=== PATIENT | female | born 1960 | race Hispanic/Latino ===

== ENCOUNTER 2018-01-17 20:56 | Observation (INO) | payer OTHER ==
[2018-01-17 22:30] LABS: Absolute Lymphocytes (CBC) 0.8 K/uL (0.7-4.9); Absolute Monocytes 0.1 K/uL (0.1-1.3); Absolute Neutrophil 13.6 K/uL (1.8-8.0); Basophils % 0.1 % (0-1.3); Hematocrit 36.8 % (36.0-45.0); Lymphocytes % 5.4 % (15.3-44.8); MPV 7.7 fL (7.6-11.3); Monocytes % 0.9 % (3.3-12.3); RBC Red Blood Cell Count 4.04 M/uL (3.86-4.86)
[2018-01-17 22:43] LABS: Potassium 3.8 mEq/L (3.6-5.0)
[2018-01-17] MEDS ORDERED: NA CHLORIDE 0.9% 1,000 ML ONE (22:43)
[2018-01-17 22:49] LABS: Albumin 3.7 g/dL (3.2-5.5); Bilirubin Direct 0.1 mg/dL (0-0.2); Bilirubin Total 0.3 mg/dL (0.3-1.2); Protein, Total 6.8 g/dL (6.0-8.3)
[2018-01-17 23:05] LABS: Blood Morphology Comment NOT SEEN (NOT SEEN); Platelet Estimate ADEQ; Urine White Blood Cell Casts OK
[2018-01-17 23:13] LABS: Urine Blood 1+ (NEG); Urine Glucose TRACE (NEG); Urine Protein NEGATIVE (NEG)
[2018-01-17] MEDS ORDERED: ASPIRIN 325 MG TAB ONE (23:15)
[2018-01-17 23:16] LABS: Protime INR 0.94
[2018-01-17 23:28] LABS: Urine Bacteria <20 /HPF (<20); Urine Culture Reflex Order NOT NEEDED
--- NOTE | 2018-01-18 01:06 | EDPHYS ---
Physician Documentation [facility] Name: Azra Bacon Age: 57 yrs Sex: Female : 1960 Arrival Date: 01/17/2018 Time: 21:02 Bed 28 Private MD: ED Physician Tavo James HPI: 01/18 00:55 This 57 yrs old Female presents to ER via Ambulatory with complaints of Facial wa Swelling, Anxiety. 00:55 The patient or guardian reports chest pain that is located primarily in the substernal wa area. Onset: today, on-going x 3 months. worse today. The pain does not radiate. Associated signs and symptoms: Pertinent positives: shortness of breath, Pertinent negatives: abdominal pain, cough, dizziness, headache, syncope, vomiting. The chest pain is described as a heaviness. Duration: The patient or guardian reports a single episode, that is still ongoing. Modifying factors: The symptoms are alleviated by nothing. the symptoms are aggravated by exertion. Severity of pain: At its worst the pain was moderate in the emergency department the pain is unchanged. The patient has experienced similar episodes in the past, several times, the past 3 months. The patient has not recently seen a physician. Historical: - Allergies: 01/17 21:11 No Known Allergies; lp1 - Home Meds: 21:11 Metformin Oral [Active]; Lisinopril Oral [Active]; lp1 - PMHx: 21:11 Diabetes - NIDDM; Hypertension; lp1 - PSHx: 21:11 ; Leg surgery; lp1 - Immunization history:: Adult Immunizations up to date. - Social history:: Smoking status: Patient/guardian denies using tobacco. - Family history:: not pertinent. - Hospitalizations: : No recent hospitalization is reported. ROS: 01/18 00:57 Constitutional: Negative for fever, chills, and weight loss, Eyes: Negative for injury, wa pain, redness, and discharge, ENT: Negative for injury, pain, and discharge, Neck: Negative for injury, pain, and swelling, Abdomen/GI: Negative for abdominal pain, nausea, vomiting, diarrhea, and constipation, Back: Negative for injury and pain, : Negative for injury, bleeding, discharge, and swelling, MS/Extremity: Negative for injury and deformity, Skin: Negative for injury, rash, and discoloration, Neuro: Negative for headache, weakness, numbness, tingling, and seizure, Psych: Negative for depression, anxiety, suicide ideation, homicidal ideation, and hallucinations. Cardiovascular: Positive for chest pain, Negative for edema, orthopnea, palpitations, paroxysmal nocturnal dyspnea. Respiratory: Positive for shortness of breath, on exertion. Negative for cough, wheezing. Exam: 00:58 Constitutional: This is a well developed, well nourished patient who is awake, alert, wa and in no acute distress. Head/Face: Normocephalic, atraumatic. Eyes: Pupils equal round and reactive to light, extra-ocular motions intact. Lids and lashes normal. Conjunctiva and sclera are non-icteric and not injected. Cornea within normal limits. Periorbital areas with no swelling, redness, or edema. ENT: Nares patent. No nasal discharge, no septal abnormalities noted. Tympanic membranes are normal and external auditory canals are clear. Oropharynx with no redness, swelling, or masses, exudates, or evidence of obstruction, uvula midline. Mucous membranes moist. Neck: Trachea midline, no thyromegaly or masses palpated, and no cervical lymphadenopathy. Supple, full range of motion without nuchal rigidity, or vertebral point tenderness. No Meningismus. Chest/axilla: Normal chest wall appearance and motion. Nontender with no deformity. No lesions are appreciated. Abdomen/GI: Soft, non-tender, with normal bowel sounds. No distension or tympany. No guarding or rebound. No evidence of tenderness throughout. Back: No spinal tenderness. No costovertebral tenderness. Full range of motion. Skin: Warm, dry with normal turgor. Normal color with no rashes, no lesions, and no evidence of cellulitis. MS/ Extremity: Pulses equal, no cyanosis. Neurovascular intact. Full, normal range of motion. Neuro: Awake and alert, GCS 15, oriented to person, place, time, and situation. Cranial nerves II-XII grossly intact. Motor strength 5/5 in all extremities. Sensory grossly intact. Cerebellar exam normal. Normal gait. Psych: Awake, alert, with orientation to person, place and time. Behavior, mood, and affect are within normal limits. 00:58 Cardiovascular: Rate: tachycardic, Rhythm: regular, Pulses: no pulse deficits are appreciated. 00:58 Respiratory: the patient does not display signs of respiratory distress, Respirations: normal, Breath sounds: are clear throughout, Respiratory rate: nml Vital Signs: 01/17 21:12 BP 123 / 94; Pulse 122; Resp 18; Temp 97.5(TE); Pulse Ox 99% on R/A; Weight 77.11 kg; lp1 Height 5 ft. 1 in. (154.94 cm); 23:00 BP 154 / 99; Pulse 116; Resp 19; Pulse Ox 99% on R/A; kr2 01/18 00:01 BP 154 / 99; Pulse 114; Resp 20; Pulse Ox 98% on R/A; kr2 01:01 BP 124 / 89; Pulse 115; Resp 16; Pulse Ox 96% on R/A; kr2 01/17 21:12 Body Mass Index 32.12 (77.11 kg, 154.94 cm) lp1 MDM: 01/17 21:32 Patient medically screened. oh 01/18 00:58 Differential diagnosis: acute myocardial infarction, anxiety, coronary artery disease oh chest wall pain, congestive heart failure pericarditis, pleurisy, pneumonia, pulmonary embolus, stable angina, unstable angina. 00:59 Data reviewed: vital signs, nurses notes. Test interpretation: by ED physician or oh midlevel provider: EKG: HR 116. sinus tach. diffuse ST-T changes. 01:03 Response to treatment: the patient's symptoms have mildly improved after treatment. oh Physician consultation: Connor Chew MD. Admission orders: after a detailed discussion of the patient's condition and case, the admit orders are written by nd. Special discussion: will admit for r/o ACS. consider PE. CT chest pending. 01:07 Test interpretation: by ED physician or midlevel provider: CT chest: no PE.. oh 01:10 Data interpreted: labs noted for leukocytosis. hyperglycemia. . 01/17 21:57 Order name: BMP 01/17 21:57 Order name: BNP 01/17 21:57 Order name: CBC with Diff 01/17 21:57 Order name: CPK 01/17 21:57 Order name: D-Dimer 01/17 21:57 Order name: Hepatic Function 01/17 21:57 Order name: Lipase 01/17 21:57 Order name: Magnesium 01/17 21:57 Order name: PT-INR oh 01/17 21:57 Order name: Troponin (emerg Dept Use Only) oh 01/17 22:31 Order name: CBC with Automated Diff; Complete Time: 23:51 EDMS 01/17 22:43 Order name: Basic Metabolic Panel; Complete Time: 23:51 EDMS 01/17 22:43 Order name: Lipase; Complete Time: 23:51 EDMS 01/17 22:49 Order name: Troponin (Emerg Dept Use Only); Complete Time: 23:51 EDMS 01/17 21:57 Order name: XRAY Chest Pa And Lat (2 Views) oh 01/17 22:50 Order name: Liver (Hepatic) Function; Complete Time: 23:51 EDMS 01/17 22:50 Order name: Creatine Phosphokinase; Complete Time: 23:52 EDMS 01/17 22:50 Order name: Magnesium; Complete Time: 23:52 EDMS 01/17 22:52 Order name: BNP B-Type Natriuretic Peptide; Complete Time: 23:52 EDMS 01/17 23:00 Order name: Urine Microscopic Only [facility] 01/17 23:05 Order name: CBC Smear Scan; Complete Time: 23:52 EDMS 01/17 23:06 Order name: Urine Dipstick--Ancillary (enter results) [facility] 01/17 23:08 Order name: Urine --Ancillary (enter results) [facility] 01/17 23:13 Order name: Urine Dipstick-Ancillary; Complete Time: 23:51 EDMS 01/17 23:13 Order name: Urine --Ancillary; Complete Time: 23:52 EDMS 01/17 23:17 Order name: Protime (+INR); Complete Time: 00:26 EDMS 01/17 23:28 Order name: Urine Microscopic Only; Complete Time: 23:51 EDMS 01/17 23:52 Order name: CT Chest For PE Angio oh 01/17 21:57 Order name: EKG; Complete Time: 22:11 oh 01/17 21:57 Order name: Cardiac monitoring; Complete Time: 22:25 oh 01/17 21:57 Order name: EKG - Nurse/Tech; Complete Time: 22:25 oh 01/17 21:57 Order name: IV Saline Lock; Complete Time: 22:25 oh 03/24 21:57 Order name: Labs collected and sent; Complete Time: 22:25 oh 01/17 21:57 Order name: O2 Per Protocol; Complete Time: 22: oh 01/17 21:57 Order name: O2 Sat Monitoring; Complete Time: : oh 01/17 21:57 Order name: Urine Dipstick-Ancillary (obtain specimen); Complete Time: 23:05 oh Administered Medications: 01/17 22:32 Drug: NS 0.9% 1000 ml Route: IV; Rate: 1 bolus; Site: right forearm; kr2 23:45 Follow up: Response: No adverse reaction; IV Status: Completed infusion kr2 22:40 Drug: Aspirin 325 mg Route: PO; kr2 01/18 00:41 Follow up: Response: No adverse reaction kr2 Disposition: 01/18/18 01:05 Hospitalization ordered by Connor Chew for Observation. Preliminary diagnosis are chest pain, shortness of breath. - Bed requested for Telemetry/MedSurg (observation). - Status is Observation. fc - Condition is Stable. - Problem is new. - Symptoms have improved. UTI on Admission? No Signatures: Dispatcher [employer] EDSimi Wilkinson RN RN Sandra Hunt RN RN fc Pena, Laura RN RN lp1 Tavo James MD MD oh Kamila Ferrera, RN RN kr2
--- NOTE | 2018-01-18 01:06 | ER ---
Nurse's Notes [facility] Name: Azra Bacon Age: 57 yrs Sex: Female : 1960 Arrival Date: 01/17/2018 Time: 21:02 Bed 28 Private MD: Diagnosis: chest pain;shortness of breath Presentation: 01/17 21:09 Presenting complaint: Patient states: facial swelling x 1 month, today she woke up and lp1 eyes were swollen shut; States feeling anxious. Transition of care: patient was not received from another setting of care. Onset of symptoms was January 17, 2018. Care prior to arrival: None. 21:09 Method Of Arrival: Ambulatory lp1 21:09 Acuity: TRINA 4 lp1 Historical: - Allergies: 21:11 No Known Allergies; lp1 - Home Meds: 21:11 Metformin Oral [Active]; Lisinopril Oral [Active]; lp1 - PMHx: 21:11 Diabetes - NIDDM; Hypertension; lp1 - PSHx: 21:11 ; Leg surgery; lp1 - Immunization history:: Adult Immunizations up to date. - Social history:: Smoking status: Patient/guardian denies using tobacco. - Family history:: not pertinent. - Hospitalizations: : No recent hospitalization is reported. Screenin:12 Abuse screen: Denies threats or abuse. Denies injuries from another. Nutritional lp1 screening: No deficits noted. Tuberculosis screening: No symptoms or risk factors identified. Fall Risk None identified. Assessment: 21:39 General: Appears in no apparent distress. comfortable, Behavior is cooperative, ao appropriate for age, anxious. Pain: Denies pain. Neuro: Level of Consciousness is awake, alert, obeys commands, Oriented to person, place, time, situation, Appropriate for age Moves all extremities. Speech is normal, Facial symmetry appears normal, Pupils are PERRLA. Cardiovascular: Heart tones S1 S2 Capillary refill < 3 seconds Patient's skin is warm and dry. Respiratory: Airway is patent Respiratory effort is even, unlabored, Respiratory pattern is regular, symmetrical, Breath sounds are clear bilaterally. Respiratory: Reports shortness of breath on exertion. GI: Abdomen is non-distended. : No signs and/or symptoms were reported regarding the genitourinary system. EENT: No signs and/or symptoms were reported regarding the EENT system. Derm:. Derm: Skin is pink, warm \T\ dry. Skin temperature is warm. Musculoskeletal: Swelling present in face. 22:30 Reassessment: Patient appears in no apparent distress at this time. Patient and/or kr2 family updated on plan of care and expected duration. Pain level reassessed. Patient is alert, oriented x 3, equal unlabored respirations, skin warm/dry/pink. Patient denies pain at this time. 23:00 Reassessment: No changes from previously documented assessment. kr2 01/18 00:00 Reassessment: Patient appears in no apparent distress at this time. Patient and/or kr2 family updated on plan of care and expected duration. Pain level reassessed. Patient is alert, oriented x 3, equal unlabored respirations, skin warm/dry/pink. Patient denies pain at this time. 01:01 Reassessment: Patient appears in no apparent distress at this time. Patient and/or kr2 family updated on plan of care and expected duration. Pain level reassessed. Patient is alert, oriented x 3, equal unlabored respirations, skin warm/dry/pink. Patient denies pain at this time. Vital Signs: 01/17 21:12 BP 123 / 94; Pulse 122; Resp 18; Temp 97.5(TE); Pulse Ox 99% on R/A; Weight 77.11 kg; lp1 Height 5 ft. 1 in. (154.94 cm); 23:00 BP 154 / 99; Pulse 116; Resp 19; Pulse Ox 99% on R/A; kr2 01/18 00:01 BP 154 / 99; Pulse 114; Resp 20; Pulse Ox 98% on R/A; kr2 01:01 BP 124 / 89; Pulse 115; Resp 16; Pulse Ox 96% on R/A; kr2 01/17 21:12 Body Mass Index 32.12 (77.11 kg, 154.94 cm) lp1 ED Course: 01/17 21:02 Patient arrived in ED. al2 21:11 Triage completed. lp1 21:12 Arm band placed on left wrist. lp1 21:32 Taov James MD is Attending Physician. wa 21:32 Kurt Park RN is Primary Nurse. ao 21:41 Patient has correct armband on for positive identification. Pulse ox on. NIBP on. ao 22:20 Report given to LAWRENCE Treviño. ao 22:25 EKG done, by ED staff, reviewed by Tavo James MD. [facility] 22:43 X-ray completed. Portable x-ray completed in exam room. Patient tolerated procedure la2 well. 23:00 Urine collected: clean catch specimen, clear. 3 01/18 01:04 Connor Chew MD is Hospitalizing Provider. wa 01:30 No provider procedures requiring assistance completed. Patient admitted, IV remains in ao place. Administered Medications: 01/17 22:32 Drug: NS 0.9% 1000 ml Route: IV; Rate: 1 bolus; Site: right forearm; kr2 23:45 Follow up: Response: No adverse reaction; IV Status: Completed infusion kr2 22:40 Drug: Aspirin 325 mg Route: PO; kr2 01/18 00:41 Follow up: Response: No adverse reaction kr2 Outcome: 01:05 Decision to Hospitalize by Provider. wa 01:30 Admitted to Med/surg accompanied by nurse, Report called to Mayur 01:30 Condition: stable 01:30 Instructed on the need for admit. 04:54 Patient left the ED. fc Signatures: Sandra Epperson RN RN Jaye Guzman RN RN [facility] Kurt Park RN Candy Avalos [facility] Tavo James MD MD tx Eleanor Green [facility] Kamila Ferrera, RN RN kr2 Cassi Leary2 Corrections: (The following items were deleted from the chart) 01/17 21:12 21:12 Arm band placed on lp1 lp1
--- NOTE | 2018-01-18 05:12 | EKG ---
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
[2018-01-18] MEDS ORDERED: ONDANSETRON 4 MG/2 ML VIAL IV PRN (05:36)
[2018-01-18] MEDS ORDERED: ACETAMINOPHEN 500 MG TAB PO PRN (05:36)
[2018-01-18] MEDS: INSULIN -REGULAR HUMAN 50 UNIT/0.5 ML ML SQ SCH ×4 (07:30→21:00)
--- NOTE | 2018-01-18 07:58 | RAD REPORT ---
EXAM DESCRIPTION: CT - Chest For Pe Angio - 01/18/2018 6:31 am CLINICAL HISTORY: Chest pain, shortness of breath, hypertension A preliminary written report was provided at the time of the study, and the report was reviewed prio r to final dictation. COMPARISON: Chest films same date TECHNIQUE: Dynamically enhanced 3 mm thick images of the chest were obtained during administration o f approximately 150mL Isovue 370 IV contrast. Coronal and oblique reconstruction images were generate d and reviewed. Exam utilizes a protocol to evaluate the pulmonary arterial tree. All CT scans are performed using dose optimization technique as appropriate and may include automated exposure control or mA/KV adjustment according to patient size. FINDINGS: No pulmonary emboli are identified. The aorta as imaged shows no acute or suspicious finding. No pericardial thickening or effusion. No infiltrate or mass in the lung parenchyma. Dependent atelectasis seen in each posterior base . No mediastinal or hilar suspicious masses. No chest wall masses or abnormal axillary lymphadenopathy. IMPRESSION: No pulmonary emboli identified. No other significant or suspicious findings.
--- NOTE | 2018-01-18 07:59 | RAD REPORT ---
EXAM DESCRIPTION: RAD - Chest Pa And Lat (2 Views) - 01/17/2018 10:45 pm CLINICAL HISTORY: Facial swelling, shortness of breath, chest pain COMPARISON: None. TECHNIQUE: PA and lateral views of the chest were obtained. FINDINGS: The lungs are clear. Heart size is normal and central vasculature is within normal limit s. No pleural effusion or pneumothorax seen. No acute bone findings seen. There is degenerative and scoliotic changes in the spine. Aortic tortuosity follows the course of the spine. IMPRESSION: No acute cardiopulmonary process.
[2018-01-18] MEDS ORDERED: D50W 25 GM/50 ML SYRINGE IV PRN (08:34)
[2018-01-18] MEDS ORDERED: GLUCAGON 1 MG/VIAL IM PRN (08:34)
[2018-01-18] MEDS ORDERED: ALPRAZOLAM 0.25 MG TABLET PO PRN (09:00)
--- NOTE | 2018-01-18 09:08 | P.HP ---
Certification for Inpatient Patient admitted to: Observation With expected LOS: <2 Midnights Patient will require the following post-hospital care: None Practitioner: I am a practitioner with admitting privileges, knowledge of patient current condition, hospital course, and medical plan of care. Services: Services provided to patient in accordance with Admission requirements found in Title 42 Section 412.3 of the Code of Federal Regulations Patient History Date of Service: 01/18/18 Primary Care Provider: Dr. Mccallum([facility]) Reason for admission: Chest pain, anxiety History of Present Illness: 57-year-old female presented emergency room with chest pain. She reports that she has been having chest pain over the weekend. It started on Friday. It was mainly to the left side. It was a pressure-like sensation. During this time, She also felt swelling to her face. There was no shortness of breath, nausea or vomiting. She reports that she has been under a great deal of stress. She felt that this was more of a panic attack. She felt tremors. There has been a great deal of stress at home. Also taking care of a elderly mother. Note, vomiting or noted. Patient with history of diabetes, hypertension and obesity. She does not smoke or drink. In the ER the patient was evaluated. Vital signs stable. White count 14.6, initial cardiac enzymes unremarkable. ALT 69. Initial EKG showed no significant EKG changes. Urinalysis unremarkable. The patient was admitted for observation. When I saw the patient in her room, son was at bedside. She does not appear in any respiratory distress. She does appear slightly anxious. The patient further reports that she used to take medication for depression and anxiety. It is been a while since she took medication Allergies No Known Allergies Allergy (Verified 01/18/18 05:09) Home medications list reviewed: Yes - Past Medical/Surgical History Diabetic: Yes -: Hypertension -: Diabetes mellitus type 2 -: Depression with anxiety -: Stress reaction -: Obesity -: Hysterectomy -: Left hip surgery -: Tubal ligation Psychosocial/ Personal History: The patient is , she has 4 children. 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 - Family History Father -: Heart disease, Other (see notes) Notes: parkinsons - Social History Smoking Status: Never smoker Alcohol use: No CD- Drugs: No Caffeine use: No Place of Residence: Home Review of Systems General: As per HPI Eyes: Unremarkable ENT: Unremarkable Respiratory: Unremarkable Cardiovascular: Chest Pain, As per HPI Gastrointestinal: Unremarkable Genitourinary: Unremarkable Musculoskeletal: Unremarkable Integumentary: Unremarkable Neurological: As per HPI Lymphatics: Unremarkable Physical Examination - Vital Signs Temperature: 96.8 F Blood Pressure: 109/70 Pulse: 96 Respirations: 18 Pulse Ox (%): 98 - Physical Exam General: Alert, In no apparent distress, Oriented x3, Cooperative HEENT: Atraumatic, Normocephalic, PERRLA, Mucous membr. moist/pink Neck: Supple, No Thyromegaly Respiratory: Clear to auscultation bilaterally, Normal air movement Cardiovascular: Normal pulses, Regular rate/rhythm Gastrointestinal: Normal bowel sounds, Soft and benign, Non-distended, No tenderness, No masses, No rebound, No guarding Musculoskeletal: No erythema, No tenderness, No warmth Integumentary: No tenderness/swelling, No erythema, No warmth, No cyanosis Neurological: Normal speech, Normal strength at 5/5 x4 extr, Normal tone, Abnormal affect (Flat affect. Some anxiety noted) Lymphatics: No axilla or inguinal lymphadenopathy - Studies Laboratory Data (last 24 hrs) 01/17/18 22:20: PT 11.2, INR 0.94 01/17/18 22:20: WBC 14.6 H, Hgb 12.5, Hct 36.8, Plt Count 386 01/17/18 22:20: B-Natriuretic Peptide 49 01/17/18 22:20: Sodium 134 L, Potassium 3.8, BUN 27 H, Creatinine 0.98, Glucose 170 H, Magnesium 2.0, Total Bilirubin 0.3, AST 27, ALT 69 H, Alkaline Phosphatase 119, Lipase 21 L Assessment and Plan - Problems (Diagnosis) (1) Chest pain Current Visit: Yes Status: Acute Plan: Patient presented with chest pain. Patient with increased stress at home. This may be related to underlying depression with anxiety. Initial cardiac enzymes unremarkable. Cardiology is to assess patient. Patient with history of diabetes, hypertension and obesity. Await recommendations from cardiology. Anticipate discharge today and follow up with cardiology as an outpatient for outpatient stress test. Patient requires counseling for depression with anxiety. Will recommend that the patient follow up with her PCP to restart medication for depression. Stress counseling will be encouraged. Will plan to discharge if okay with cardiology. Qualifiers: Chest pain type: unspecified Qualified Code(s): R07.9 - Chest pain, unspecified (2) Diabetes mellitus Current Visit: Yes Status: Chronic Plan: Will check A1c. Will continue with her medication at discharge. Qualifiers: Diabetes mellitus type: type 2 Diabetes mellitus admission specialist insulin use: without detention use Diabetes mellitus complication status: with other specified complication Qualified Code(s): E11.69 - Type 2 diabetes mellitus with other specified complication (3) Hypertension Current Visit: Yes Status: Chronic Plan: Will restart her medication at a lower dose. Qualifiers: Hypertension type: essential hypertension Qualified Code(s): I10 - Essential (primary) hypertension (4) Depression with anxiety Current Visit: Yes Status: Chronic Plan: Patient with history of depression and anxiety. She is not taking any medication in quite some time. Will recommend that she follow up with her PCP to restart medication. Will check TSH. (5) Stress reaction Current Visit: Yes Status: Acute Plan: Patient with increased stress at home. Stress education will be provided. Patient will likely need to be treated for her depression with anxiety. This can be further addressed by her PCP. (6) Obesity Current Visit: Yes Status: Chronic Plan: Lifestyle modification education will be provided. Qualifiers: Obesity type: due to excess calories Obesity classification: adult class 1 (BMI 30 - 34.9) Serious obesity comorbidity presence: with serious comorbidity Body mass index: BMI 32.0-32.9 Qualified Code(s): E66.09 - Other obesity due to excess calories; Z68.32 - Body mass index (BMI) 32.0-32.9, adult; Z68.32 - Body mass index (BMI) 32.0-32.9, adult (7) Elevated liver function tests Current Visit: Yes Status: Acute Plan: Patient with elevated liver function. Likely with fatty liver. Hepatitis panel has been obtained. This can be followed up as an outpatient. Patient may require abdominal ultrasound as an outpatient to evaluate for fatty liver. Patient reports that she is not been eating appropriately. Diet and education will be provided. Discharge Plan: Home Plan to discharge in: 24 Hours - Advance Directives Does patient have a Living Will: No Does patient have a Durable POA for Healthcare: No - Code Status/Comfort Care Code Status Assessed: Yes Time Spent Managing Pts Care (In Minutes): 55
[2018-01-18] MEDS: ENOXAPARIN 40 MG/0.4 ML SQ SCH (10:48)
[2018-01-18] MEDS: PANTOPRAZOLE 40MG TABLET PO SCH (10:48)
[2018-01-18] MEDS: ASPIRIN EC 81 MG TAB PO SCH (10:48)
[2018-01-18 10:53] LABS: Thyroid Stimulating Hormone 0.41 uIU/mL (0.34-5.60)
[2018-01-18] MEDS: NA CHLORIDE 0.9% 1,000 ML IV SCH ×3 (11:03→21:56)
--- NOTE | 2018-01-18 17:34 | CON ---
Chief Complaint: Anxiety attack and shortness of breath. History Of Present Illness: The patient has had several attacks like this in the past. Her cardiac evaluations have always been normal. I believe, this is the first time she has been in our hospital with one. She suddenly gets out of breath, very frightened, shaking hands, and feet tingle. She get s sweaty palms, lightheaded, and dizzy. Tingly all over and then it seems to go away on its own. Thanh marks had a spell like that the last several hours yesterday and since being here, EKGs, cardiac enzymes are normal. The patient has underlying glucose intolerance and hypertension. She uses no tobacco. Never had myocardial infarction or stroke. No history of cardiac or other vascular surgery. Social History: There has never been any tobacco use, alcohol use, or illegal drug use. Physical Examination: General: She is 5 feet 1 inches, 169 pounds. Alert, oriented, and pleasant. Not in distress. Vital Signs: Blood pressure 109/70, and O2 saturation 98%. Temperature 96.8, pulse rate 89, respira tions 16. Neck: No carotid bruit. Lungs: Clear. Cardiac Exam: Normal. Abdomen: Soft. Extremities: Normal. Normal pulses. No cyanosis, clubbing, or edema. Diagnostic Data: Electrocardiogram shows no abnormalities. A chest x-ray, no abnormalities. CT ang io of the chest is negative for pulmonary embolus. Her EKG shows poor R-wave progression, not a defi nite myocardial infarction. I suspect, it is more from her body habitus than an actual myocardial in farction. I will recommend that we do a nuclear stress test and an echocardiogram will be as certain as we can that her heart is stab le if possible. THANH/JACLYN Voice ID: [id number] Report ID: [id number]
[2018-01-18] MEDS ORDERED: ATORVASTATIN 40 MG TAB PO SCH (21:00)
[2018-01-18] MEDS ORDERED: LISINOPRIL 10 MG TAB PO SCH (21:00)
[2018-01-19] MEDS: INSULIN -REGULAR HUMAN 50 UNIT/0.5 ML ML SQ SCH ×3 (07:30→16:30)
[2018-01-19] MEDS: PANTOPRAZOLE 40MG TABLET PO SCH (09:42)
[2018-01-19] MEDS: ASPIRIN EC 81 MG TAB PO SCH (09:42)
[2018-01-19] MEDS: ENOXAPARIN 40 MG/0.4 ML SQ SCH (09:42)
[2018-01-19 10:14] LABS: A1c Component 0.59 mg/dL; Hemoglobin A1c 6.7 % (4-6.0)
--- NOTE | 2018-01-19 11:09 | EKG ---
Test Date: 2018-01-19 Test Time: 10:26:19 Referral Agent: RAMONE MEASUREMENT RESULTS: Intervals: Rate: 85 UT: 160 QRSD: 80 QT: 354 QTc: 421 [place]: P: 48 UT: 160 QRS: -14 T: 35 INTERPRETIVE STATEMENTS: Normal sinus rhythm Minimal voltage criteria for LVH, may be normal variant Abnormal ECG Compared to ECG 01/17/2018 22:11:39 Sinus tachycardia no longer present Left-axis deviation no longer present Myocardial infarct finding no longer present Electronically Signed On 01-19-18 11:09:20 CDT by Talat Maki
--- NOTE | 2018-01-19 13:40 | ECHO ---
HEIGHT: 5 ft 1 in WEIGHT: 169 lb 14.4 oz DATE OF STUDY: 01/19/[address]: Talat Maki MD 2-DIMENSIONAL: YES M.MODE: YES DOPPLER: YES COLOR FLOW: YES TDS: NO PORTABLE: NO DEFINITY: NO BUBBLE STUDY: NO DIAGNOSIS: CHEST PAIN CARDIAC HISTORY: CATHERIZATION: NO SURGERY: NO PROSTHETIC VALVE: NO PACEMAKER: NO MEASUREMENTS (cm) DIASTOLIC (NORMALS) SYSTOLIC (NORMALS) IVSd 0.8 (0.6-1.2) LA Diam 3.5 (1.9-4.0) LVEF 59% LVIDd 3.6 (3.5-5.7) LVIDs 2.5 (2.0-3.5) %FS 31% LVPWd 1.0 (0.6-1.2) Ao Diam 2.7 (2.0-3.7) 2 DIMENSIONAL ASSESSMENT: RIGHT ATRIUM: NORMAL LEFT ATRIUM: NORMAL RIGHT VENTRICLE: NORMAL LEFT VENTRICLE: NORMAL TRICUSPID VALVE: NORMAL MITRAL VALVE: NORMAL PULMONIC VALVE: NORMAL AORTIC VALVE: NORMAL PERICARDIAL EFFUSION: NONE AORTIC ROOT: NORMAL LEFT VENTRICULAR WALL MOTION: NORMAL. DOPPLER/COLOR FLOW: NORMAL. COMMENTS: NORMAL 2D ECHO WITH DOPPLER. TECHNOLOGIST: DAMON MARTIN
[2018-01-19] MEDS: NA CHLORIDE 0.9% 1,000 ML IV SCH (14:00)
--- NOTE | 2018-01-19 15:03 | P.DS ---
Admission Date: 01/18/18 Discharge Date: 01/19/18 Primary Care Provider: Dr. Mccallum([facility]) Disposition: ROUTINE DISCHARGE Discharge Condition: FAIR Reason for Admission: Chest pain, anxiety - Problems (1) Chest pain Onset Date: 01/19/18 Current Visit: Yes Status: Acute Qualifiers: Chest pain type: unspecified Qualified Code(s): R07.9 - Chest pain, unspecified (2) Hyperlipidemia Current Visit: Yes Status: Acute (3) Depression with anxiety Onset Date: 01/19/18 Current Visit: Yes Status: Chronic (4) Diabetes mellitus Onset Date: 01/19/18 Current Visit: Yes Status: Chronic Qualifiers: Diabetes mellitus type: type 2 Diabetes mellitus mcfp insulin use: without mcfp use Diabetes mellitus complication status: with other specified complication Qualified Code(s): E11.69 - Type 2 diabetes mellitus with other specified complication (5) Hypertension Onset Date: 01/19/18 Current Visit: Yes Status: Chronic Qualifiers: Hypertension type: essential hypertension Qualified Code(s): I10 - Essential (primary) hypertension (6) Obesity Onset Date: 01/19/18 Current Visit: Yes Status: Chronic Qualifiers: Obesity type: due to excess calories Obesity classification: adult class 1 (BMI 30 - 34.9) Serious obesity comorbidity presence: with serious comorbidity Body mass index: BMI 32.0-32.9 Qualified Code(s): E66.09 - Other obesity due to excess calories; Z68.32 - Body mass index (BMI) 32.0-32.9, adult; Z68.32 - Body mass index (BMI) 32.0-32.9, adult Brief History of Present Illness: 57-year-old female presented emergency room with chest pain. She reports that she has been having chest pain over the weekend. It started on Friday. It was mainly to the left side. It was a pressure-like sensation. During this time, She also felt swelling to her face. There was no shortness of breath, nausea or vomiting. She reports that she has been under a great deal of stress. She felt that this was more of a panic attack. She felt tremors. There has been a great deal of stress at home. Also taking care of a elderly mother. Note, vomiting or noted. Patient with history of diabetes, hypertension and obesity. She does not smoke or drink. In the ER the patient was evaluated. Vital signs stable. White count 14.6, initial cardiac enzymes unremarkable. ALT 69. Initial EKG showed no significant EKG changes. Urinalysis unremarkable. The patient was admitted for observation. When I saw the patient in her room, son was at bedside. She does not appear in any respiratory distress. She does appear slightly anxious. The patient further reports that she used to take medication for depression and anxiety. It is been a while since she took medication Hospital Course: The patient with admitted under observation for chest pain. CT angiogram shows no evidence of a pneumonia RO pulmonary embolism. She had a CT scan of chest was unremarkable. She had a echocardiogram which was unremarkable. She has stress test performed today and results are pending. The patient had no more chest pain today. She denies short of breath. The patient will be discharged home on Protonix. Vital Signs/Physical Exam: Temp Pulse Resp BP Pulse Ox 96.9 F 78 16 114/74 96 01/19/18 08:00 01/19/18 08:00 01/19/18 08:00 01/19/18 08:00 01/19/18 08:00 General: Alert, In no apparent distress HEENT: Atraumatic, PERRLA, EOMI Neck: Supple, JVD not distended Respiratory: Clear to auscultation bilaterally, Normal air movement Cardiovascular: Regular rate/rhythm, Normal S1 S2 Gastrointestinal: Normal bowel sounds, No tenderness Musculoskeletal: No tenderness Integumentary: No rashes Neurological: Normal speech, Normal tone, Normal affect Lymphatics: No axilla or inguinal lymphadenopathy Laboratory Data at Discharge: WBC 14.6 K/uL (4.3-10.9) H 01/17/18 22:20 Hgb 12.5 g/dL (12.0-15.0) 01/17/18 22:20 Hct 36.8 % (36.0-45.0) 01/17/18 22:20 Plt Count 386 K/uL (152-406) 01/17/18 22:20 PT 11.2 SECONDS (9.2-12.8) 01/17/18 22:20 INR 0.94 01/17/18 22:20 Sodium 134 mEq/L (135-145) L 01/17/18 22:20 Potassium 3.8 mEq/L (3.6-5.0) 01/17/18 22:20 BUN 27 mg/dL (6-20) H 01/17/18 22:20 Creatinine 0.98 mg/dL (0.44-1.00) 01/17/18 22:20 Glucose 170 mg/dL (65-120) H 01/17/18 22:20 Magnesium 2.0 mg/dL (1.8-2.5) 01/17/18 22:20 Total Bilirubin 0.3 mg/dL (0.3-1.2) 01/17/18 22:20 AST 27 IU/L (10-42) 01/17/18 22:20 ALT 69 IU/L (10-60) H 01/17/18 22:20 Alkaline Phosphatase 119 IU/L (42-121) 01/17/18 22:20 Troponin I < 0.03 ng/mL (<0.03) 01/18/18 15:25 B-Natriuretic Peptide 49 pg/ml (<=100) 01/17/18 22:20 Triglycerides 70 mg/dL (35-160) 01/19/18 05:00 Cholesterol 166 mg/dL (<200) 01/19/18 05:00 HDL Cholesterol 59 mg/dL (29-89) 01/19/18 05:00 Cholesterol/HDL Ratio 2.81 01/19/18 05:00 Lipase 21 U/L (22-51) L 01/17/18 22:20 Home Medications: Atorvastatin Calcium [Lipitor] 40 mg PO BEDTIME #30 tab 01/19/18 Lisinopril [Prinivil*] 10 mg PO BEDTIME #30 tab 01/19/18 Loratadine [Claritin*] 10 mg PO DAILY 01/19/18 Metformin ER [Glucophage ER*] 500 mg PO TID 01/19/18 Pantoprazole [Protonix Tab*] 40 mg PO ACB #30 tab 01/19/18 New Medications: Atorvastatin Calcium [Lipitor] 40 mg PO BEDTIME #30 tab Lisinopril [Prinivil*] 10 mg PO BEDTIME #30 tab Pantoprazole [Protonix Tab*] 40 mg PO ACB #30 tab Activity: Ad elaine Time spent managing pt's care (in minutes): 15
[2018-01-19] MEDS ORDERED: REGADENOSON 0.4 MG/5 ML SYR IV ONE (15:05)
--- NOTE | 2018-01-19 16:25 | RAD REPORT ---
EXAM DESCRIPTION: NM - Rest Stress Cardiac Imaging - 01/19/2018 4:14 pm CLINICAL HISTORY: Chest pain COMPARISON: None. TECHNIQUE: The patient was administered 11 mCi of Tc 99m Sestamibi prior to resting SPECT imaging of the heart. The patient was then administered 31.2 mCi of Tc 99m Sestamibi following exercise or phar macologic stress. Multiplanar SPECT images were reviewed. FINDINGS: The end diastolic volume is 61 ml, the end systolic volume is 22 ml, and the ejection frac tion is 65 %. Physiologic distribution of the radiopharmaceutical through the myocardium is noted. No stress induce d ischemic defect is seen to suggest stress induced ischemia. No fixed defect is seen to suggest hibe rnating myocardium or scarred myocardium. IMPRESSION: No stress induced ischemia or other suspicious findings. Ventricular volumes and ejection fraction are normal range.
--- NOTE | 2018-01-19 16:54 | TREADPHA ---
DX: CHEST PAIN Date of Study: 01/19/2018 Ht: 5' 1 " Wt: 169 lb 14.4 oz Consulting Physician: ABHIJEET MEDICATIONS: TYLENOL, XANAX, ASPIRIN, LIPITOR, DEXTROSE, LOVENOX, GLUCAGEN, NOVOLIN-R, PRINIVIL, ZOFRAN HISTORY: 57 YEAR OLD FEMALE WITH COMPLAINTS OF CHEST PAIN. HISTORY OF DIABETES MELLITUS, HYPERTENSION AND HYPERLIPIDEMIA. PHYSICIAL EXAMINATION: RESTING B.P.: 98/69 RESTING H.R.: 85 RESTING EKG: NORMAL PROTOCOL: EXERCISE TIME: 3:30 B.P. AT PEAK STRESS: 109/73 IMPRESSION: LEXISCAN INJECTED, CARDIOLITE INJECTED PER PROTOCOL. NO CHEST PAIN, NO VENTRICULAR TACHYCARDIA, NO SUPRAVENTRICULAR TACHYCARDIA. COMPLAINTS OF FACIAL PAIN, SIX OUT OF TEN ON PAIN SCALE. NON-DIAGNOSTIC ELECTROCARDIOGRAM WITH LEXISCAN STRESS.
[2018-01-21 03:11] LABS: HBsAG Nonreactive (Nonreactive); Hepatitis A IgM Antibody Nonreactive
== END 2018-01-19 17:58 | disposition home or self-care (01) ==
LOC: ER 20:56 → ERHOLD 01-18 01:05 → 2ND 01-18 01:52
PROVIDERS: ADMIT Internal Medicine; ATTEND Family Medicine
DX: R07.9 Chest pain, unspecified (principal); E78.5 Hyperlipidemia, unspecified; F41.8 Other specified anxiety disorders; E11.9 Type 2 diabetes mellitus without complications; I10 Essential (primary) hypertension; E66.9 Obesity, unspecified; Z68.32 Body mass index [BMI] 32.0-32.9, adult; F43.0 Acute stress reaction; R74.8 Abnormal levels of other serum enzymes
CPT/HCPCS: 36415; 71046; 71275; 78452; 80048; 80061; 80074; 80076; 81003; 81015; 81025; 82550; 82553; 82962; 83036; 83690; 83735; 83880; 84439; 84443; 84484; 85025; 85610; 93005; 93017; 93306; 96360; 99285; A9500; G0378; J1650; J2785; J7030; Q9967